=== PATIENT | male | born 1995 | race Asian ===

== ENCOUNTER 2022-08-28 19:59 | Emergency (ER) | payer MEDICAID, OTHER ==
[~2022-08-28] VITALS: Ht 177.8 cm; Wt 54.4 kg
--- NOTE | 2022-08-28 20:44 | NUR ---
URINE COLLECTED AND SENT TO LAB
[2022-08-28 21:00] VITALS: BP 123/70
[2022-08-28] MEDS: IV NS 0.9% 1,000 ML IV ONE (21:08)
--- NOTE | 2022-08-28 21:08 | NUR ---
blood work collected sent to rani malhotra
[2022-08-28 21:46] LABS: BASOPHILS % (AUTO) 0.2 % (0.0-2.0); EOSINOPHILS % (AUTO) 0.6 % (0.0-6.0); HEMATOCRIT 39 % (39-51); HEMOGLOBIN 12.8 g/dL (13.5-17.5); LYMPHOCYTES # (AUTO) 1.8 K/uL (0.8-4.8); LYMPHOCYTES % (AUTO) 20.2 % (20.0-44.0); MEAN CORPUSCULAR HGB CONC 33 g/dl (31.0-36.0); MEAN CORPUSCULAR VOLUME 93 fL (80-96); MONOCYTES # (AUTO) 0.6 K/uL (0.1-1.30); MONOCYTES % (AUTO) 6.6 % (2.0-12.0); NEUTROPHILS # (AUTO) 6.4 K/uL (1.8-8.9); NEUTROPHILS % (AUTO) 72.4 % (43.0-81.0); PLATELET COUNT (AUTO) 254 K/uL (150-450); RED BLOOD CELL COUNT(AUTO) 4.18 MIL/uL (4.5-6.0); WHITE BLOOD COUNT (AUTO) 8.8 K/uL (4.3-11.0)
[2022-08-28 22:05] LABS: CALCIUM, SERUM 8.6 mg/dL (8.5-10.1); CREATININE 0.9 mg/dL (0.6-1.3); POTASSIUM 3.6 mmol/L (3.5-5.1)
[2022-08-28 22:11] LABS: BILIRUBIN,DIRECT 0.1 mg/dL (0.0-0.2); BILIRUBIN,TOTAL 0.2 mg/dL (0.2-1.0); TOTAL PROTEIN, SERUM 7.6 g/dL (6.4-8.2)
[2022-08-28 22:14] LABS: BILIRUBIN,URINE NEGATIVE (NEGATIVE); COLOR,URINE YELLOW (YELLOW); LEUKOCYTE ESTERASE ,URINE NEGATIVE (NEGATIVE); NITRITE, URINE NEGATIVE (NEGATIVE); PH,URINE 6.5 (5.0-8.0); PROTEIN,URINE NEGATIVE (NEGATIVE); UGLUCOSE NEGATIVE (NEGATIVE); UROBILINOGEN,URINE 0.2 EU/dL (0.2)
[2022-08-28] MEDS ORDERED: ONDA4TAB5 PO (22:25)
[2022-08-28] MEDS ORDERED: FAMO20TA80 PO (22:25)
--- NOTE | 2022-08-28 22:57 | NUR ---
Patient discharged to home in stable condition. Written and verbal after care instructions given. Patient verbalizes understanding of instruction.
== END 2022-08-28 22:59 | disposition home or self-care (01) ==
LOC: ER 20:02
DX: A08.4 Viral intestinal infection, unspecified (principal)
CPT/HCPCS: 99283; 96360; 85025; 80048; 83690; 80076; 81003; 36415; J7030